=== PATIENT | male | born 1955 | race American Indian/Alaskan Native ===

== ENCOUNTER 2019-03-17 05:56 | Day surgery (SDC) | payer OTHER ==
[2019-03-17] MEDS ORDERED: BACTERIOSTATIC SODIUM CHLORIDE 0.9% 30 ML VIAL INFILTRATI ONE (06:36)
[2019-03-17] MEDS ORDERED: LACTATED RINGERS 1,000 ML IV SCH (07:17)
[2019-03-17] MEDS ORDERED: MIDAZOLAM 2 MG/2 ML INJ IV NR (07:17)
[2019-03-17] MEDS ORDERED: ceFAZolin/STERILE WATER 2 GM/20 ML SYRINGE IV NR (07:18)
--- NOTE | 2019-03-17 07:26 | Anesthesia Consultation ---
Anesthesia Consult and Med Hx Date of service: 03/17/19 - Airway Anesthetic Teeth Evaluation: Dentures ROM Head & Neck: Adequate Mental/Hyoid Distance: Adequate Mallampati Class: Class II Intubation Access Assessment: Good - Pulmonary Exam CTA: Yes - Cardiac Exam Cardiac Exam: RRR - Pre-Operative Health Status ASA Pre-Surgery Classification: ASA3 Proposed Anesthetic Plan: General (HTN, Sarcoidosis, Migraines for GA) - Pulmonary Hx Smoking: Yes (STOPPED AT AGE 22 YRS) Hx Sleep Apnea: No (JORGE A PRE SCREEN HIGH RISK) - Cardiovascular System Hx Hypertension: Yes (1984) - Hematic Hx Anemia: No - Other Systems Hx Cancer: No
--- NOTE | 2019-03-17 07:27 | Anesthesia Day of Surgery ---
Anesthesia Day of Surgery - Day of Surgery Patient Examined: Yes Patient H&P Reviewed: Yes Patient is NPO: Yes
[2019-03-17] MEDS ORDERED: fentaNYL 100 MCG/2 ML INJ ONE (07:39)
[2019-03-17] MEDS ORDERED: PROPOFOL 200 MG/20 ML VIAL IV ONE (07:39)
[2019-03-17] MEDS ORDERED: LIDOCAINE MPF (2%) 20 MG/1 ML VIAL 5 ML ONE (07:41)
[2019-03-17] MEDS ORDERED: ePHEDrine SULFATE 50 MG/1 ML INJ ONE (08:50)
--- NOTE | 2019-03-17 09:10 | Short Stay Summary ---
Short Stay Documentation Date of service: 03/17/19 - History H&P: obtained from office - Allergies and Medications Current Medications: Allergies STEROIDS Adverse Reaction (Severe, Uncoded 02/16/19 14:42) Anaphylaxis Home Medications Medication Instructions Recorded Confirmed Last Taken Type ALBUTEROL Inhaler (OR & NICU) 2 puff IH QID PRN 03/08/19 03/08/19 03/16/19 History [ProAir HFA Inhaler] Atenolol [Tenormin] 25 mg PO DAILY 03/08/19 03/08/19 03/16/19 History Cholecalciferol (Vitamin D3) 1,000 unit PO QDAY 03/08/19 03/08/19 03/16/19 History [Vitamin D3 2,000 UNIT CAP] Colchicine 0.6 mg PO DAILY 03/08/19 03/08/19 03/16/19 History Colestipol HCl [Colestid] 5 gm PO BID 03/08/19 03/08/19 03/16/19 History Finasteride [Propecia] 1 mg PO DAILY 03/08/19 03/08/19 03/16/19 History Finasteride [Proscar] 5 mg PO DAILY 03/08/19 03/08/19 03/16/19 History [place]-3/Dha/Epa/Fish Oil [Fish Oil 1 each PO DAILY 03/08/19 03/08/19 03/16/19 History 1,200 mg Softgel] Potassium Citrate [Potassium 20 meq PO DAILY 03/08/19 03/08/19 03/16/19 History Citrate ER] Pravastatin [Pravachol] 40 mg PO QHS 03/08/19 03/08/19 03/16/19 History Sertraline [Zoloft] 100 mg PO QDAY 03/08/19 03/08/19 03/16/19 History Tamsulosin [Flomax] 0.4 mg PO QDAY 03/08/19 03/08/19 03/16/19 History Tiotropium [Spiriva] 2 puff IH QDAY 03/08/19 03/08/19 03/16/19 History amLODIPine [Norvasc] 10 mg PO DAILY 03/08/19 03/08/19 03/16/19 History azaTHIOprine [Imuran] 50 mg PO TID 03/08/19 03/08/19 03/16/19 History Active Medications Cefazolin Sodium (Ancef/Sterile Water 2 Gm/20 Ml) 2 gm IV PREOP NR Stop: 03/17/19 13:00 Lactated Ringer's (Lactated Ringers) 1,000 mls @ 100 mls/hr IV DIRECT TRAM Last Admin: 03/17/19 07:40 Dose: 100 mls/hr Documented by: Midazolam HCl (Versed) 2 mg IV ONCE NR Stop: 03/17/19 20:00 Last Admin: 03/17/19 07:41 Dose: 2 mg Documented by: - Brief post op/procedure progress note Date of procedure: 03/17/19 Pre-op diagnosis: rt renal stone Post-op diagnosis: same Procedure: eswl Anesthesia: HUONGA Surgeon: DIMITRIOS VAUGHN Pathology: none Condition: stable - Hospital course Hospital course: norco & post op info on chart - Disposition Condition at discharge: Stable Disposition: DC-01 TO HOME OR SELFCARE Short Stay Discharge Plan Follow up with: [facility] [Primary Care Provider] - 7 Days
[2019-03-17] MEDS ORDERED: GLYCOPYRROLATE 0.4 MG/2 ML INJ ONE (09:12)
--- NOTE | 2019-03-17 09:21 | Operative Report ---
PREOPERATIVE DIAGNOSIS: Right renal stone, 1 cm. POSTOPERATIVE DIAGNOSIS: Right renal stone, 1 cm. PROCEDURE: Extracorporal shock wave lithotripsy, staged procedure. SURGEON: Maury Sam M.D. ANESTHESIA: General. ESTIMATED BLOOD LOSS: Minimal. FLUIDS: Crystalloid. COMPLICATIONS: No complications. INDICATIONS: This patient is a 63-year-old gentleman seen by Dr. Mcpherson in the office evaluation, he was found to have a 1 cm right renal stone. He has a history of stones in the past; however, he has not required any surgical intervention. Risks, benefits, and complications were explained to the patient and his . They agreed to proceed with surgical intervention. DESCRIPTION OF PROCEDURE: The patient was taken to the operative suite, placed in a supine position. After adequate general anesthesia, his stone was localized in 2 planes using fluoroscopy. Extracorporal shock wave lithotripsy was administered with a maximum kV of 8 and 2500 shocks. 2-minute renal pause after 200 shocks was performed. Adequate fragmentation could be appreciated. He tolerated the procedure well and was extubated and taken to recovery room. He will go home on [place] and strain his urine. JOB# [id number] [facility]
[2019-03-17 10:14] VITALS: BP 132/82
--- NOTE | 2019-03-17 22:24 | Post Anesthesia Evaluation ---
- Post Anesthesia Evaluation Patient Participated: Yes Airway Patent: Yes Stable Respiratory Function: Yes Nausea/Vomiting: No Temp > 96.8F: Yes Pain Manageable: Yes Adequeate Hydration: Yes Anesthesia Complications: No Block Receding Appropriately: Not Applicable Patient on Ventilator: No
== END 2019-03-17 10:40 | disposition home or self-care (01) ==
LOC: OR 05:56
PROVIDERS: ATTEND Urology
DX: N20.0 Calculus of kidney (principal); E78.00 Pure hypercholesterolemia, unspecified; I10 Essential (primary) hypertension; F32.9 Major depressive disorder, single episode, unspecified; F41.9 Anxiety disorder, unspecified; G43.909 Migraine, unspecified, not intractable, without status migrainosus; Z79.899 Other long term (current) drug therapy; Z87.891 Personal history of nicotine dependence; Z98.890 Other specified postprocedural states; Z88.8 Allergy status to other drugs, medicaments and biological substances
CPT/HCPCS: 50590; 82803; J0690; J2250; J2704; J3010; J7120